=== PATIENT | male | born 1955 | race Caucasian/White ===

== ENCOUNTER → 2017-03-28 | Outpatient (CLI) | payer OTHER | LOC: COL.VAS 08:00 | DX: G45.9 Transient cerebral ischemic attack, unspecified (principal); I08.8 Other rheumatic multiple valve diseases; G45.3 Amaurosis fugax ==

== ENCOUNTER 2022-03-09 15:55 | Outpatient (RCR) | payer OTHER | END 2022-03-16 | disposition home or self-care (01) | LOC: WSOH | DX: S50.12XD Contusion of left forearm, subsequent encounter (principal); I10 Essential (primary) hypertension; E78.00 Pure hypercholesterolemia, unspecified; N40.0 Benign prostatic hyperplasia without lower urinary tract symptoms; Y99.0 Civilian activity done for income or pay ==

== ENCOUNTER 2023-05-05 07:47 | Day surgery (SDC) | payer OTHER ==
[~2023-05-05] VITALS: Ht 170.2 cm; Wt 104.2 kg
[2023-05-05 08:28] VITALS: BP 149/83; PULSE 73; TEMP 97.3
[2023-05-05] MEDS ORDERED: ASPIRIN 81M81 MG/TA2 PO (08:31)
[2023-05-05] MEDS ORDERED: LIPITOR 10MG10 MG PO (08:32)
[2023-05-05] MEDS ORDERED: EPA FISH OIL1 SGL PO (08:32)
[2023-05-05] MEDS ORDERED: FLAXSEED OIL1000 MG PO (08:32)
[2023-05-05] MEDS ORDERED: LOPID 600M600 MG/TAB PO (08:33)
[2023-05-05] MEDS ORDERED: HCTZ 25MG TAB25 MG PO (08:33)
[2023-05-05] MEDS ORDERED: FLOMAX 0.40.4 MG/CAP PO (08:34)
[2023-05-05] MEDS ORDERED: MULTIPLE VITAMI1 CAP PO (08:34)
[2023-05-05] MEDS ORDERED: VITAMIN D250 MCG PO (08:35)
[2023-05-05] MEDS ORDERED: NATURAL E400 IU PO (08:36)
[2023-05-05] MEDS ORDERED: VITAMIN C500 MG (08:37)
[2023-05-05] MEDS ORDERED: B COMPLEX #11 TA1 PO (08:37)
--- NOTE | 2023-05-05 09:07 | NUR ---
PATIENT AMBULATED TO BAY 9 WITH STEADY GAIT. ALERT AND ORIENTED X4. PATIENT STATED UNDERSTANDING OF PROCEDURE. CONSENTS SIGNED. ASSESSMENT COMPLETED. 20G IV STARTED IN RIGHT HAND BY CISCO BARRIOS. LR INFUSING WITHOUT DIFFICULTIES. WARM BLANKET PROVIDED. NO FURHTER NEEDS NOTED. RESTING IN RECLINER. CALL LIGHT IN REACH. AND DAUGHTER AT SIDE.
[2023-05-05 09:40] VITALS: BP 123/78; PULSE 73; TEMP 97.1
--- NOTE | 2023-05-05 09:40 | NUR ---
PATIENT AMBULATED TO CHAIR WITH STEADY GAIT, ALERT AND ORIENTED X3. DENIES PAIN, NAUSEA AND SHORTNESS OF BREATH. BREATHING REGULAR AND UNLABORED ON ROOM AIR. SKIN WARM AND DRY. NURSE HANDOFF COMPLETED IN ROOM. SPOUSE PRESENT IN ROOM. PATIENT HAD A MUFFIN, JUICE AND COFFEE. BOTH FOOD AND DRINK TOLERATED WELL. CALL LIGHT IN REACH. SEE CHART FOR VITALS
[2023-05-05 09:45] VITALS: BP 117/79; PULSE 73
[2023-05-05 10:00] VITALS: BP 123/75; PULSE 71
[2023-05-05 10:15] VITALS: BP 138/72; PULSE 72
--- NOTE | 2023-05-05 10:22 | NUR ---
1010: MET WITH PATIENT AND FAMILY TO DISCUSS PROCEDURE. 1014: DISCHARGE TEACHING COMPLETED WITH PRINTED EDUCATION AND INSTRUCTIONS SENT HOME WITH PATIENT. PATIENT AND SPOUSE VERBALIZED UNDERSTANDING OF TEACHING. DENIES PAIN, NAUSEA AND SHORTNESS OF BREATH. IV REMOVED. GAUZE AND COBAN PLACED OVER SITE. PATIENT DISCHARGED HOME WITH DAUGHTER, LUCIA, TRANSPORT.
== END 2023-05-05 10:22 | disposition home or self-care (01) ==
LOC: SDCO 07:47
DX: Z12.11 Encounter for screening for malignant neoplasm of colon (principal); K57.30 Diverticulosis of large intestine without perforation or abscess without bleeding; E66.01 Morbid (severe) obesity due to excess calories
CPT/HCPCS: J2704; J7120